=== PATIENT | female | born 1980 | race Caucasian/White ===

== ENCOUNTER 2016-10-31 21:50 | Emergency (ER) | payer OTHER ==
--- NOTE | 2016-11-02 13:12 | ER ---
ADMIT: 10/31/2016 RM/LOC: ER [facility] MR#: [id number] [address] [id number] KRYSTINA PACHECO [address] [place] [address] Emergency Room Report SEX: F AGE: 36 : 1980 DATE: 10/31/2016 CHIEF COMPLAINT: Abdominal pain. HISTORY OF PRESENT ILLNESS: This is a pleasant 36-year-old female, who presents to the emergency room for evaluation of her abdominal pain. The patient states over the past 3 days, she has been experiencing some left upper quadrant abdominal pain. She states this pain is still present in the ER today. She has tried using Tylenol without improvement. She rates the pain as a 7/10. Denies any radiation. Denies any left shoulder pain. She describes this pain as sharp and stabbing in the left upper quadrant. Admits to some nausea, diarrhea, and sweating. She states she thinks this pain is exacerbated by food and relieved in a supine position if she lays perfectly still. She denies any sick contacts at home other than a son diagnosed with mononucleosis. PAST MEDICAL HISTORY: Significant for gallbladder sludge which she said was improved with diet and exercise and losing weight. She has had a hernia repair on her abdomen about 10 years ago. COURSE IN THE EMERGENCY ROOM: The patient was seen and examined. Significant for some tenderness in the left upper quadrant. Labs were drawn. CBC remarkable for white count 11.7, hemoglobin 13.4, hematocrit 37.8, platelets 314. Urine test was negative. CMP shows sodium 140, potassium 3.7, chloride 105, CO2 29, creatinine 0.9, bilirubin 0.2, lipase was 222. AST and ALT were within normal limits. Clean-catch cath urine was obtained and no evidence of acute infection. The patient was given Zofran 4 mg ODT, which she states did relieve some of her nausea and she was feeling somewhat better. IMPRESSION: 1. Left upper quadrant abdominal pain. 2. Nausea. ADMIT: 10/31/2016 RM/LOC: [facility] MR#: [id number] [address] [id number] [place]ST[place] [address] Emergency Room Report SEX: F AGE: 36 : 1980 DISPOSITION: I did discuss with the patient results from laboratory investigation today that were fairly unremarkable. I did give her the option to proceed with CT scan, which she declined and decided that she would rather see how she does over the next couple of days. She was instructed to restrict her diet to light foods and increase as tolerated. She should continue her home medications. She was instructed to return with any worsening in her pain, high fevers, increased nausea, vomiting, or other concerning symptoms. She was instructed to follow up with Dr. Byrd if she is not improving over the next couple of days. She was provided script for Zofran 4 mg ODT one tab every 8 hours as needed for nausea. She was given 8. She was discharged from the department in stable condition. ELVIRA Luna / To Sumner MD / modl JOB #: [id number] CC: To Sumner MD, Attending Physician Luis Byrd MD, Family Physician
== END 2016-11-01 00:04 | disposition home or self-care (01) ==
LOC: ER 21:50
DX: R10.12 Left upper quadrant pain (principal); R11.0 Nausea; Z88.8 Allergy status to other drugs, medicaments and biological substances; Z79.899 Other long term (current) drug therapy

== ENCOUNTER 2016-12-28 20:04 | Emergency (ER) | payer OTHER ==
--- NOTE | 2017-01-01 19:04 | ER ---
ADMIT: 12/28/2016 RM/LOC: ER [facility] MR#: [id number] [id number] [facility] [address] [place] [id number] KRYSTINA PACHECO [address] [place] [address] Emergency Room Report SEX: F AGE: 36 : 1980 DATE: 12/28/2016 CHIEF COMPLAINT: Left flank pain. HISTORY OF PRESENT ILLNESS: A 36-year-old female, who presents with 12 hours duration of left low back pain radiating to her groin. States she has never had a kidney stone in the past. Describes the pain as sharp and stabbing. Rates it as severe 8/10. Admits to some nausea and loss of appetite. Denies any fever, chills, vomiting, and diarrhea, worse with movement. Relieved by nothing at this point. Admits to some urinary frequency. Has had bladder infections in the past. She is concerned this could possibly be going on today. No medications have helped at this point. COURSE IN THE EMERGENCY ROOM: GENERAL: The patient was seen and examined. She is afebrile and nontoxic. She is in mild amount of distress, appearing very uncomfortable on the table. NECK: Soft and supple. RESPIRATORY: No respiratory distress. Breath sounds are equal bilaterally. HEART: Regular rate and rhythm. ABDOMEN: Soft. She does have some tenderness to the left lower quadrant rating up to the left low back. No McBurney's point tenderness. No CVA tenderness. SKIN: Warm and dry. EXTREMITIES: Nontender. No pedal edema. UA is significant for 1136 rbc's per high-power field, 4 wbc's, 2+ leukocyte esterase. Did proceed with CT renal colic, significant for 2 mm left ureteral stone. Radiologist did also note an irregularity, hopefully he has recommended followup ultrasound as an outpatient at some point. She was given a dose of Flomax. Prior to discharge, she was also given 1 L of normal saline, Zofran, Toradol, and morphine for pain control and nausea. IMPRESSION: Ureterolithiasis. DISPOSITION: The patient was discharged with Flomax 0.4 mg tabs one tab p.o. daily until stone passes, [place] 5/325 tabs one to two tabs p.o. every 4 to 6 hours as needed for pain #24. Follow up Urology if the stone does not pass in a week. Follow up primary care as needed. Push fluids. Tylenol or Motrin as needed for pain. She was cautioned not to use Tylenol. She is using the [place]. She was not to drive after taking narcotics. Questions were sought and answered to the patient's satisfaction. Discharged in stable condition. ELVIRA Luna / To Sumner MD / modl JOB #: [id number] CC: To Sumner MD, Attending Physician ADMIT: 12/28/2016 RM/LOC: [facility] MR#: [id number] [address] [place] [id number] KRYSTINA PACHECO [address] [place] [address] Emergency Room Report SEX: F AGE: 36 : 1980 Luis Byrd MD, Family Physician
== END 2016-12-28 22:55 | disposition home or self-care (01) ==
LOC: ER 20:04
DX: N13.2 Hydronephrosis with renal and ureteral calculous obstruction (principal); E16.2 Hypoglycemia, unspecified; Z98.890 Other specified postprocedural states; Z88.8 Allergy status to other drugs, medicaments and biological substances